=== PATIENT | female | born 1995 | race Caucasian/White ===

== ENCOUNTER 2023-05-17 05:02 | Inpatient (IN) | payer MEDICAID ==
[2023-05-17] VITALS (49 sets, daily range): BP systolic 81–132; BP diastolic 42–89; PULSE 70–140; TEMP 98–98.4
[~2023-05-17] VITALS: Ht 149.9 cm; Wt 70.5 kg
--- NOTE | 2023-05-17 05:15 | NUR ---
G2L1 at 41 weeks and 1 day arrives to unit with complaint of spontaneous rupture of membranes. Pt reports large gush of clear fluid around 0230 this morning and has continued to leak clear fluid with some specks of blood. Pt reports good movement and reports contractions every 2-3 minutes for the last hour. Denies problems this . Pt oriented to room, call light within reach, bed in low and locked position. US and toco explained and applied. Admission assessment started. Vitals obtained. Plan of care reviewed with patient and FOB. Amnitrace positive and grossly ruptured on exam. SVE 3/75/-3, head felt on exam.
[2023-05-17] MEDS ORDERED: LR 1,000 ML IV SCH (05:45)
[2023-05-17] MEDS ORDERED: Penicillin G Potassium 5,000,000 UNITS in NS 100 ML IV ONE (05:45)
[2023-05-17] MEDS ORDERED: LR & Oxytocin 500 ML IV SCH (05:45)
--- NOTE | 2023-05-17 05:45 | NUR ---
18G IV started in right forearm. Admission labs obtained off IV start. Lactated Ringers infusing to gravity. Initial dose of Pen G started. Consents reviewed and signed with patient and FOB.
[2023-05-17] MEDS ORDERED: PNV-SELECT1 TAB PO (05:56)
[2023-05-17 06:10] LABS: BASO % 0.1 % (0.0-2.0); GRAN # 9.5 K/mm3 (1.4-6.5); GRAN % 80.3 % (42.2-75.2); HEMOGLOBIN 11.1 g/dl (12.5-16.0); LYMPH # 1.3 K/mm3 (1.2-3.4); LYMPH % 11.3 % (20.0-51.0); MEAN CELL VOLUME 90 fl (80.0-100.0); MEAN CORPUSCULAR HEMOGLOBIN 29 pg (27-31); MEAN CORPUSCULAR HGB CONC 32 g/dl (33.0-37.0); MONO # 0.9 K/mm3 (0.1-0.6); MONO % 7.5 % (1.7-9.3); PLATELET COUNT 198 K/mm3 (130-400); RED BLOOD COUNT 3.86 M/mm3 (4.10-5.30); REDCELL DISTRIBUTION WIDTH-CV 12.9 % (11.5-14.5)
[2023-05-17 06:14] LABS: HEMATOCRIT 34.8 % (37.0-47.0)
--- NOTE | 2023-05-17 07:36 | NUR ---
0657- EDDA CALLED FOR PT EPIDURAL. 0723- EDDA ON UNIT. 0725- PT SITTING UP. BP AND O2 MONITORS ON. FLUID BOLUS RUNNING. 0727- EDDA AT BEDSIDE. DISCUSSING SIDE EFFECTS AND SETTING UP FOR EPIDURAL. 0736- SINGLE SHOT. 0742- PT REPOSITIONED TO SUPINE WEDGE LEFT. PT TOLERATED WELL. VS WNL.
[2023-05-17] MEDS ORDERED: Ondansetron 4 MG/2 ML VIAL IV PRN ×2 (07:45→18:30)
[2023-05-17] MEDS ORDERED: ePHEDrine 50 MG/10 ML VIAL IV PRN (07:45)
[2023-05-17] MEDS ORDERED: Naloxone 0.4 MG/ML VIAL IV PRN ×2 (07:45→18:30)
[2023-05-17] MEDS ORDERED: diphenhydrAMINE 25 MG CAP PO PRN (07:45)
[2023-05-17] MEDS ORDERED: diphenhydrAMINE 50 MG/ML 1 ML VIAL IV PRN (07:45)
[2023-05-17] MEDS ORDERED: ROPivacaine PF 0.2% 200 ML IV ONE (07:47)
[2023-05-17] MEDS ORDERED: Penicillin G Potassium 2,500,000 UNITS in NS 100 ML IV SCH (09:33)
--- NOTE | 2023-05-17 09:54 | NUR ---
0954- THIS RN AT BEDSIDE WHEN FHT DECELED DOWN FROM 165 TO 65. PT WAS TURNED FROM LL TO RL. DECEL DID NOT IMPROVE SO PT WAS TURNED BACK TO LL, THEN TO HANDS AND KNEES. O2 WAS PLACED ON PT, FLUID BOLUS STARTED, PITOCIN TURNED OFF. DECEL LASTED 150 SECONDS, THEN WENT TO 90'S-100'S. 1000- PT TURNED TO SUPINE TO HAVE A FSE PLACED. SVE 6/80/-2. DR ARORA CALLED AND UPDATED. FHT RETURNED TO 120'S AND THEN ACCELED TO 170'S BEFORE RETURNING TO 120'S APPROX 3 MINUTES. HEART TONES THEN REURNED TO BASELINE OF 145.
--- NOTE | 2023-05-17 11:06 | NUR ---
1106- FHT HAD AN AUDIBLE DECEL, FSE HAD DIFFICULTY FINDING FHT. US WAS USED TO CONFIRM FHT. DECEL WAS INTO THE HIGH 60'S. LASTED 50 SECONDS, THEN REPETATIVE VARIABLE DECELS FOLLOWED LASTING 3 MINUTES. FHT THEN RESUMED 155-165 BASELINE.
--- NOTE | 2023-05-17 12:15 | NUR ---
PT IS HAVING RECURRENT LATES WITH EACH CX. PT IS IN THE LEFT LATERAL POSITION, WHICH IS THE POSITION THAT BABY IS TOLERATING BEST AT THIS POINT. ANYTIME PT IS IN RIGHT LATERAL OR RIGHT WEDGE FHT DECEL.
--- NOTE | 2023-05-17 14:13 | NUR ---
CALLED DR ARORA TO UPDATE ON SVE. 1. I DID TALK TO PT ABOUT RESUMING PITOCIN AND SHE SAID THAT WAS OKAY WITH HER. DR ARORA SAID OKAY. THAT SOUNDS GOOD.
--- NOTE | 2023-05-17 14:38 | NUR ---
CALLED DR ARORA DUE TO FHT INCREASING. HEART TONES 175-180'S. DR ARORA SAID THAT HE WOULD REVEIW THE STRIP AT HOME AND COME IN TO TALK WITH HER IF NEEDED.
--- NOTE | 2023-05-17 15:00 | NUR ---
1458- DR ARORA ON UNIT AND AT BEDSIDE. SVE6/80/-1[address] ARORA TALKED WITH PT ABOUT INCREASED FHT AND HIS CONCERN. RECOMENDED A FOR FAILURE TO PROGRESS AND NON REASSURING FHT. 1502- CALLED EDDA. 1505- PT AGREED TO . PREPERATIONS MADE AT THAT TIME.
[2023-05-17] MEDS ORDERED: Ondansetron 4 MG/2 ML VIAL ONE (15:17)
[2023-05-17] MEDS ORDERED: Phenylephrine 10 MG/ML VIAL ONE (15:17)
[2023-05-17] MEDS ORDERED: NS 20 ML IV ONE (15:17)
[2023-05-17] MEDS ORDERED: Azithromycin 500 MG in NS 250 ML IV ONE (15:30)
[2023-05-17] MEDS ORDERED: Oxytocin 10 UNITS/ML VIAL ONE ×2 (15:34→16:07)
[2023-05-17] MEDS ORDERED: EPINEPHrine 1 MG/1 ML Ampule ONE (15:47)
[2023-05-17] MEDS ORDERED: Tranexamic Acid 1,000 MG/10 ML VIAL ONE (15:51)
[2023-05-17] MEDS ORDERED: Meperidine 50 MG/ML 1 ML VIAL ONE (15:54)
[2023-05-17] MEDS ORDERED: Ketorolac 60 MG/2 ML VIAL IM ONE (16:01)
[2023-05-17] MEDS ORDERED: LR 1,000 ML IV ONE (16:27)
[2023-05-17] MEDS ORDERED: Loratadine 10 MG TAB PO PRN (16:45)
[2023-05-17] MEDS ORDERED: Magnes Hydrox (MOM) 80 MG/ML 30 ML CUP PO PRN (16:45)
[2023-05-17] MEDS ORDERED: LR 1,000 ML IV PRN (18:30)
[2023-05-17] MEDS ORDERED: Morphine 4 MG/ML VIAL IV PRN (18:30)
[2023-05-17] MEDS ORDERED: Measles/Mumps/Rubella Virus Vaccine Live w Diluent 0.5 ML VIAL SQ SCH (18:30)
[2023-05-17] MEDS ORDERED: oxyCODONE 5 MG TAB PO PRN (18:30)
[2023-05-17] MEDS ORDERED: Acetaminophen 500 MG TAB PO SCH (18:30)
[2023-05-17] MEDS ORDERED: Sennosides/Docusate 8.6-50 MG TAB PO SCH (19:00)
[2023-05-17] MEDS ORDERED: traZODone 50 MG TAB PO PRN (21:00)
[2023-05-17] MEDS ORDERED: Ibuprofen 600 MG TAB PO SCH (22:34)
[2023-05-18 01:00] VITALS: BP 103/60; PULSE 93; TEMP 98
[2023-05-18 05:30] VITALS: BP 109/60; PULSE 77; TEMP 98
[2023-05-18 07:35] LABS: HEMOGLOBIN 8.1 g/dl (12.5-16.0)
[2023-05-18 07:36] LABS: HEMATOCRIT 24.9 % (37.0-47.0)
[2023-05-18 07:40] VITALS: BP 109/72; PULSE 78; TEMP 97.9
[2023-05-18] MEDS ORDERED: Prenatal Vitamins/Iron/FA TAB PO SCH (09:00)
[2023-05-18] MEDS ORDERED: Acetaminophen 500 MG TAB PO SCH (20:00)
[2023-05-18 20:30] VITALS: BP 105/68; PULSE 85; TEMP 97.8
[2023-05-19] MEDS ORDERED: MOTRIN 600600 MG/TAB PO (07:54)
[2023-05-19] MEDS ORDERED: ROXICODONE 55 MG/TAB PO (07:54)
[2023-05-19 08:02] VITALS: BP 123/51; PULSE 93; TEMP 98.1
--- NOTE | 2023-05-19 10:13 | NUR ---
Initial visit attempt; Consult in progress. Web Page Designer left card offering congratulations and God's blessings for the of their son and information regarding the availability of [facility] at [facility].
== END 2023-05-19 11:55 | disposition home or self-care (01) | DRG 788 ==
LOC: LDRO 05:02 → LDR 05:35 → OB 17:00
PROVIDERS: Obstetrics & Gynecology; ADMIT Obstetrics & Gynecology
PROC: 10D00Z1 Extraction of Products of Conception, Low, Open Approach (ICD-10-PCS; principal; 2023-05-17)
DX: O48.0 Post-term pregnancy (principal); Z37.0 Single live birth; O62.0 Primary inadequate contractions; O76 Abnormality in fetal heart rate and rhythm complicating labor and delivery; O33.9 Maternal care for disproportion, unspecified; O99.820 Streptococcus B carrier state complicating pregnancy; O99.02 Anemia complicating childbirth; D64.9 Anemia, unspecified; Z3A.41 41 weeks gestation of pregnancy
CPT/HCPCS: J0171; J0665; J0690; J1885; J2175; J2371; J2405; J2540; J2590; J2795; J7120